=== PATIENT | female | born 2000 | race Asian ===

== ENCOUNTER 2022-08-08 20:19 | Emergency (ER) | payer OTHER ==
[~2022-08-08] VITALS: Ht 160 cm; Wt 66.7 kg
[2022-08-08 20:25] VITALS: BP 110/70
--- NOTE | 2022-08-08 20:28 | NUR ---
TO LOBBY A/W BED AMBULATORY
[2022-08-08 21:41] VITALS: BP 110/70
--- NOTE | 2022-08-08 21:42 | NUR ---
Patient discharged with v/s stable. Written and verbal after care instructions given and explained. Patient verbalized understanding. Ambulatory with steady gait. All questions addressed prior to discharge. Advised to follow up with PMD.
== END 2022-08-08 21:41 | disposition home or self-care (01) ==
LOC: MED 20:19
DX: R07.89 Other chest pain (principal); F41.9 Anxiety disorder, unspecified; Z88.0 Allergy status to penicillin
CPT/HCPCS: 93005; 99283